=== PATIENT | female | born 2000 | race Caucasian/White ===

== ENCOUNTER 2018-01-22 07:48 | Emergency (ER) | payer BC ==
--- NOTE | 2018-01-22 09:08 | RAD ---
INDICATION: Left great toe pain. TECHNIQUE: 3 views of the left great toe were obtained. FINDINGS: There is soft tissue swelling adjacent to the distal phalanx. The bones are in normal alignment. No fracture is seen. Joint spaces appear maintained. IMPRESSION: SOFT TISSUE SWELLING.
--- NOTE | 2018-01-22 09:09 | RAD ---
INDICATION: Left knee pain. TECHNIQUE: 4 views of the left knee were obtained. FINDINGS: The bones are in normal alignment. No joint effusion or fracture is seen. Joint spaces appear maintained. IMPRESSION: NEGATIVE EXAM.
--- NOTE | 2018-01-22 09:25 | RAD ---
Indication: Left lower extremity edema. Duplex Doppler sonography of the deep venous system of the left lower extremity deep venous system was performed. Bilaterally the common femoral veins appear patent and compressible. Left proximal greater saphenous vein, proximal deep femoral vein, femoral vein, popliteal vein, posterior tibial veins and peroneal veins appear patent and compressible. IMPRESSION: NO EVIDENCE OF DEEP VENOUS THROMBOSIS IS IDENTIFIED.
[2018-01-22 11:13] VITALS: BP 113/82
--- NOTE | 2018-01-22 14:11 | ED ---
Rupert Mcallister Angela, scribed for Jose Luis Elliott MD on 01/22/18 at 0822 . Lower Extremity - HPI Summary HPI Summary: This pt is a 17 y/o female presenting to [facility] [place] [place]/o left knee pain x1 week. Pt denies any trauma or injury. Pt reports she bought a knee stabilizer and her pain was better 5 days ago. Pt denies doing any intense work up this past week. She went to the gym yesterday morning. Denies trauma or injury. Yesterday pt states her pain began again and also had left first toe pain. Pt describes her pain as sharp. She rates her pain 6 out of 10 in severity. She denies pain on bottom of her foot. No hx of blood clots. Pt has not taken any pain medication prior to arrival. Pt is currently on control pills. Pt is a student at [employer]. - History of Current Complaint Chief Complaint: EDExtremityLower Stated Complaint: LEFT FOOT AND KNEE PAIN Time Seen by Provider: 01/22/18 08:15 Hx Obtained From: Patient Mechanism Of Injury: Other - none Onset of Pain: Days Onset/Duration: Still Present Severity Currently: Moderate Pain Intensity: 6 Pain Scale Used: 0-10 Numeric Location: Is Discrete @ - left knee and left first toe Character Of Pain: Sharp Associated Signs And Symptoms: Positive: Knee Pain - left Aggravating Factor(s): Nothing Alleviating Factor(s): Nothing Able to Bear Weight: Yes PMH/Surg Hx/FS Hx/Imm Hx Endocrine/Hematology History: Denies: Hx Diabetes Cardiovascular History: Denies: Hx Hypertension Infectious Disease History: No Infectious Disease History: Denies: Traveled Outside the [place] in Last 30 Days - Family History Known Family History: Negative: Blood Disorder - FHx of blood clots - Social History Alcohol Use: None Substance Use Type: Reports: None Smoking Status (MU): Never Smoked Tobacco Review of Systems Constitutional: Negative Eyes: Negative ENT: Negative Cardiovascular: Negative Respiratory: Negative Gastrointestinal: Negative Genitourinary: Negative Positive: Arthralgia Skin: Negative Neurological: Negative Psychological: Normal All Other Systems Reviewed And Are Negative: Yes Physical Exam - Summary Physical Exam Summary: General: well-appearing, no pain distress Skin: warm, color reflects adequate perfusion, dry Head: normal Eyes: EOMI, JOSÉ MIGUEL ENT: normal Neck: supple, nontender Respiratory: CTA, breath sounds present Cardiovascular: RRR Abdomen: soft, nontender Bowel: present Musculoskeletal: strength/ROM intact. Tenderness with movement of left patellar. Tenderness in left popliteal. Neurological: normal, sensory/motor intact, A&O x3 Psychological: affect/mood appropriate Triage Information Reviewed: Yes Vital Signs On Initial Exam: Initial Vitals Temp Pulse Resp BP Pulse Ox 98.7 F 91 18 129/73 96 01/22/18 07:49 01/22/18 07:49 01/22/18 07:49 01/22/18 07:49 01/22/18 07:49 Vital Signs Reviewed: Yes Diagnostics - Vital Signs Vital Signs Temp Pulse Resp BP Pulse Ox 01/22/18 07:49 98.7 F 91 18 129/73 96 - Laboratory Lab Statement: Any lab studies that have been ordered have been reviewed, and results considered in the medical decision making process. - Radiology Left great toe XR Xray Interpretation: Positive (See Comments) - IMPRESSION: soft tissue swelling. Dr. Elliott has reviewed this radiology report. Radiology Interpretation Completed By: Radiologist Left knee XR Xray Interpretation: No Acute Changes - IMPRESSION: negative exam. Dr. Elliott has reviewed this radiology report. Radiology Interpretation Completed By: Radiologist - Ultrasound No standard instances Ultrasound Interpretation: No Acute Changes - Left lower extremity US IMPRESSION : No evidence of deep venous thrombosis is identified. Dr. Elliott has reviewed this radiology report. Ultrasound Interpretation Completed By: Radiologist Lower Extremity Course/Dx - Course Course Of Treatment: Medications reviewed. Allergies noted. Left great toe XR shows soft tissue swelling. Left knee XR is negative. LLE US is negative. DISCUSSED RESULTS WITH PATIENT. F/U [facility]/SPORTS MEDICINE. - Diagnoses Provider Diagnoses: Left knee pain, Pain of left great toe, Patellofemoral syndrome of left knee Discharge - Discharge Plan Condition: Stable Disposition: HOME Patient Education Materials: Patellofemoral Pain Syndrome (ED), Knee Pain (ED) Referrals: [facility] @ [Outside] Additional Instructions: FOLLOW UP WITH [facility]. IF YOU ARE NOT IMPROVING, THEY MAY REFER YOU TO SPORTS MEDICINE. RETURN TO THE EMERGENCY DEPARTMENT FOR ANY WORSENING OF YOUR CONDITION OR QUESTIONS OR CONCERNS. The documentation as recorded by the Rupert medina Angela accurately reflects the service I personally performed and the decisions made by me, Jose Luis Elliott MD.
== END 2018-01-22 11:13 | disposition home or self-care (01) ==
LOC: ED 07:48
DX: M25.562 Pain in left knee (principal); M79.675 Pain in left toe(s); M25.862 Other specified joint disorders, left knee
CPT/HCPCS: 99281

== ENCOUNTER 2019-11-14 04:11 | Emergency (ER) | payer BC ==
--- OUTSIDE RECORDS SUMMARY | 2019-11-14 04:22 | XMS REPORT | Summary of Care ---
:2000 Author Organization [facility] Address [address] [place] [address] Care Team Providers Name Role Phone None, [place] Primary Care Provider Unavailable Reason for Visit Reason Comments Neck Pain Encounter Details Date Type Department Care Team Description 11/11/2019 Office Visit [facility] Jose Luis Funez Cervical strain, initial encounter (Primary Dx); [address] [facility] Thoracic myofascial strain, initial encounter [address] [phone] [place] [address] [phone] Allergies Not on Filedocumented as of this encounter (statuses as of 11/11/2019) Medications Not on filedocumented as of this encounter (statuses as of 11/11/2019) Active Problems Not on filedocumented as of this encounter (statuses as of 11/11/2019) Social History Tobacco Use Types Packs/Day Years Used Date Never Smoker Smokeless Tobacco: Never Used Sex Assigned at Date Recorded Not on file Job Start Date Occupation Industry Not on file Not on file Not on file Travel History Travel Start Travel End No recent travel history available. documented as of this encounter Last Filed Vital Signs Not on filedocumented in this encounter Progress Notes Jose Luis Funez DC - 11/11/2019 4:15 PM EST PATIENT: Ericka Miller : 2000 DATE OF SERVICE: 11/11/2019 REFERRING PRACTITIONER: Self-Referred PRIMARY CARE PROVIDER: None, [place] Chief Complaint Patient presents with Neck Pain HISTORY OF PRESENT ILLNESS: Ericka Miller is a 19-y.o. female who presents for a new visit for cervical thoracic junction stiffness. Distribution is focal. Duration / onset: several weeks ago Mechanism of injury: none known History of trauma: There has been no recent cervical trauma Onset - other information: Finals. student Frequency: frequent Quality: tight band Severity: mild Timing: all day. Aggravating factors: twisting, rotation Alleviating factors: nothing, Associated signs and symptoms: valsalva maneuvers do not influence the low back pain No lower extremity radiation No lower extremity paresthesias No upper extremity radiation No upper extremity paresthesias No lower limb weakness. No upper limb weakness. Bowel and bladder control: bowel and bladder control are normal. Successful treatments to date: none Unsuccessful treatments to date: rest Consultations to date: none Imaging procedures: none Red flag screen: There has been no history of cancer, unexplained weight loss, night sweats or night pain. Outcomes questionnaires: Analog Pain Scale result: 01/11 NDI score: Oswestry score: History reviewed. No pertinent past medical history. History reviewed. No pertinent surgical history. History reviewed. No pertinent family history. No current outpatient medications on file. No current facility-administered medications for this visit. Allergies not on file Social History Socioeconomic History Marital status: Single Spouse name: Not on file Number of children: Not on file Years of education: Not on file Highest education level: Not on file Occupational History Not on file Social Needs Financial resource strain: Not on file Food insecurity Worry: Not on file Inability: Not on file Transportation needs Medical: Not on file Non-medical: Not on file Tobacco Use Smoking status: Never Smoker Smokeless tobacco: Never Used Substance and Sexual Activity Alcohol use: Not on file Drug use: Not on file Sexual activity: Not on file Lifestyle Physical activity Days per week: Not on file Minutes per session: Not on file Stress: Not on file Relationships Social connections Talks on phone: Not on file Gets together: Not on file Attends yarsani service: Not on file Active member of club or organization: Not on file Attends meetings of clubs or organizations: Not on file Relationship status: Not on file Intimate partner violence Fear of current or ex partner: Not on file Emotionally abused: Not on file Physically abused: Not on file Forced sexual activity: Not on file Other Topics Concern Not on file Social History Narrative Not on file REVIEW OF SYSTEMS: All remaining review of systems was negative. PHYSICAL EXAMINATION: There were no vitals filed for this visit. There is no height or weight on file to calculate BMI. Neurological Exam Reflexes: (All normal) The biceps, triceps, brachioradialis, Achilles and quadriceps reflexes were 2/5 and symmetrical, Neurological Exam Motor: (All lower limb normal) Motor strength at the extensor hallucis longus, tibialis anterior, peroneus longus, quadriceps and hamstring muscles was 5/5 and symmetrical, Regions of tenderness: Cervical thoracic junction Vascular Peripheral pulses at the wrist are present bilaterally and equal. Peripheral pulses at the ankle are present bilaterally and equal. Intersegmental Motion Evaluation / chiropractic subluxation Spinal joint dysfunction/ chiropractic subluxation Acute: Cervical: R-C6/7, L-C6/7, R-C7/T1, L-C7/T1 Thoracic: R-T1/2, L-T1/2, R-T2/3, L-T2/3 Posture Forward head carriage and rounded shoulder posture noted, and the shoulders are internally rotated. Orthopedics Tests Palpation of the musculature in the cervical spine and sub occipital region was positive for pain and reproduced the patient's complaints neck pain . Cervical compression testing was negative for upper extremity symptoms using compression with combined extension, lateral bending and rotation. Thoracic spine extension reproduced the patient's complaints of cervical thoracic junction stiffness. IMPRESSION: ICD-9-CM ICD-10-CM 1. Cervical strain, initial encounter 847.0 S16.1XXA 2. Thoracic myofascial strain, initial encounter 847.1 S29.019A Response to care: Initial vist Plan: History, Exam, Report of Findings, Manipulate areas of inter-segmental dysfunction as noted inthe section titled intersegmental motion evaluation above , instruct in exercisesfor the purpose of neuromuscular reeducation to improve strength and range of motion. . Neck Flexor Exercise: Do: AM/PM, work up to 10 each time. Remember to keep chin tucked, and roll head up as slow as possible, keep chin tucked and unroll neckas slow as possible. Wall Mal Do: AM/PM 15 times. Remember to keep elbows and hands on the wall at all times, bring elbows down and in towards your sides as far and as slow as possible, return to the start position. Manipulation: Spinal level(s): Spinal joint dysfunction/ chiropractic subluxation Acute: Cervical: R-C6/7, L-C6/7, R-C7/T1, L-C7/T1 Thoracic: R-T1/2, L-T1/2, R-T2/3, L-T2/3 Goal: Reduce pain Recommended Level of Care: Follow up: Schedule follow-up here as needed if symptoms worsen.. Patient cautioned against bed rest, and encouraged to remain active. No contraindications to manipulation were identified documented in this encounter Plan of Treatment Health Maintenance Due Date Last Done Comments CHLAMYDIA SCREENING 1998 DTaP/Tdap/Td Vaccines (1 - Tdap) 2009 HPV IMMUNIZATION SERIES (1 - Female 2009 2-dose series) DEPRESSION SCREENING 2010 HIV SCREENING 2013 PAP SMEAR 2019 INFLUENZA VACCINE (#1) 2019 HEPATITIS A IMMUNIZATION SERIES Aged Out No longer eligible based on patient's age to complete this topic MENINGOCOCCAL VACCINE IMM Aged Out No longer eligible based on patient's age to complete this topic PNEUMOCOCCAL 0-64 YRS Aged Out No longer eligible based on patient's age to complete this topic documented as of this encounter Results Not on filedocumented in this encounter Visit Diagnoses Diagnosis Cervical strain, initial encounter Thoracic myofascial strain, initial encounter documented in this encounter Insurance Payer Benefit Plan / Subscriber ID Effective Dates Phone Address Type Group [employer]ATIONAL [facility] NATIONAL xxxxxxxxxxxx 2008-Present Blue Cross/Blue Shield documented as of this encounter
[2019-11-14] MEDS ORDERED: Ondansetron INJ* 2 MG/ML VIAL IV ONE (04:44)
[2019-11-14] MEDS ORDERED: NS 0.9% 1000 ML** 2,000 ML IV ONE (04:44)
--- NOTE | 2019-11-14 04:45 | ED ---
GI/ HPI - HPI Summary HPI Summary: Patient is a 19 y/o F presenting to [facility] with complaints of abdominal pain and N/V/D. On 11/13/19 around 1400, patient became nauseous. She states that she went to work at 1600 and her nausea persisted. Patient returned home at 2100 and had onset of diarrhea and vomiting. She denies fever and chills. No blood in stool or vomit noted. Abdominal pain is rated 6-7/10. Pain has been intermittent since onset. Hx of PCOS is noted, she denies possibility of due to being on control. 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 Home medications and allergies are reviewed. - History of Current Complaint Stated Complaint: VOMMITING PER PT Hx Obtained From: Patient Onset/Duration: Started Hours Ago, Still Present Timing: Intermittent Severity: Moderate Current Severity: Moderate Pain Intensity: 6 Associated Signs and Symptoms: Positive: Nausea, Vomiting, Diarrhea, Other: - negative - chills. Negative: Hematemesis, Blood w/Stool, Fever - Allergy/Home Medications Allergies/Adverse Reactions: Allergies Allergy/AdvReac Type Severity Reaction Status Date / Time No Known Allergies Allergy Verified 11/14/19 04:17 PMH/Surg Hx/FS Hx/Imm Hx Endocrine/Hematology History: Denies: Hx Diabetes Cardiovascular History: Denies: Hx Hypertension History: Reports: Other Problems/Disorders - PCOS Infectious Disease History: No Infectious Disease History: Denies: Traveled Outside the [place] in Last 30 Days - Family History Known Family History: Negative: Blood Disorder - no FHx of blood clots - Social History Alcohol Use: None Substance Use Type: Reports: None Smoking Status (MU): Never Smoked Tobacco Review of Systems Negative: Fever, Chills Gastrointestinal: Other - negative - blood in vomit or diarrhea Positive: Abdominal Pain, Vomiting, Diarrhea, Nausea All Other Systems Reviewed And Are Negative: Yes Physical Exam - Summary Physical Exam Summary: Appearance: Well-appearing, Well-nourished, lying in bed comfortably Skin: Warm, dry, no obvious rash Eyes: sclera anicteric, no conjunctival pallor ENT: mucous membranes moist, pharynx appears normal Neck: Supple, nontender Respiratory: Clear to auscultation, no signs of respiratory distress Cardiovascular: vital signs are notable for mild tachycardia; Normal S1, S2. No murmurs. Normal distal pulses in tibial and radial bilaterally. Abdomen: Soft, nontender, normal active bowel sounds present Musculoskeletal: Normal, Strength/ROM Intact Neurological: A&Ox3, awake and alert, mentation is normal, speech is fluent and appropriate Psychiatric: affect is normal, does not appear anxious or depressed Triage Information Reviewed: Yes Vital Signs On Initial Exam: Initial Vitals Temp Pulse Resp BP Pulse Ox 97.8 F 124 16 114/80 98 11/14/19 04:15 11/14/19 04:15 11/14/19 04:15 11/14/19 04:15 11/14/19 04:15 Vital Signs Reviewed: Yes Procedures - Sedation Patient Received Moderate/Deep Sedation with Procedure: No Diagnostics - Vital Signs Vital Signs Temp Pulse Resp BP Pulse Ox 11/14/19 04:15 97.8 F 124 16 114/80 98 - Laboratory Result Diagrams: 11/14/19 04:52 11/14/19 04:52 Lab Statement: Any lab studies that have been ordered have been reviewed, and results considered in the medical decision making process. GIGU Course/Dx - Course Course Of Treatment: Patient is a 19 y/o F presenting to [facility] with complaints of abdominal pain and N/V/D. On 11/13/19 around 1400, patient became nauseous. She states that she went to work at 1600 and her nausea persisted. Patient returned home at 2100 and had onset of diarrhea and vomiting. She denies fever and chills. No blood in stool or vomit noted. Abdominal pain is rated 6-7/10. Pain has been intermittent since onset. Hx of PCOS is noted, she denies possibility of due to being on control. 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 Bloodwork was obtained and within normal limits with exception of RBC 5.48, absolute lymphs 0.2, glucose 151. During ED course, patient received 8 mg IV Zofran and fluids. Patient tolerated PO challenge and is comfortable with discharge to home. She was prescribed zofran and will follow up with PCP in three days. - Diagnoses Provider Diagnoses: Gastroenteritis Discharge ED - Sign-Out/Discharge Documenting (check all that apply): Patient Departure - discharge - Discharge Plan Condition: Good Disposition: HOME Prescriptions: Ondansetron ODT TAB* [Zofran 4 MG Odt TAB*] 8 mg PO Q6H PRN #[id number] tab.odt PRN Reason: Nausea Patient Education Materials: Clear Liquid Diet (ED), Gastroenteritis (ED) Referrals: [facility] [Z.BUSINESS, APPLICATION, OTHER] - 3 Days (if not improved) Additional Instructions: Stick to clear liquids through the day today. If you are feeling better tomorrow you can advance your diet, but start with simple foods first (don't jump straight to a naik cheeseburger!). - Billing Disposition and Condition Condition: GOOD Disposition: Home - Attestation Statements Document Initiated by [employer]: Yes Documenting Scribe: EMELIA GARCIA Provider For Whom Sandy is Documenting (Include Credential): YULIET GAR MD Scribe Attestation: EMELIA Mcallister, scribed for YULIET GAR MD on 11/14/19 at 1914. Scribe Documentation Reviewed: Yes Provider Attestation: The documentation as recorded by the EMELIA medina accurately reflects the service I personally performed and the decisions made by me, YULIET GAR MD Status of Scribe Document: Viewed
[2019-11-14 04:59] LABS: ABS Lymphocytes 0.2 10^3/ul (1.0-4.8); ABS Monocytes 0.3 10^3/ul (0-0.8); ABS Neutrophils 7.6 10^3/ul (1.5-7.7); Hematocrit 46 % (35-47); Hemoglobin 15.7 g/dL (12.0-16.0); Mean Corpuscular HGB Conc 35 g/dL (31-36); Mean Corpuscular Hemoglobin 29 pg (27-31); Mean Corpuscular Volume 83 fL (80-97); Mean Platelet Volume 7.7 fL (7.4-10.4); Nucleated Red Blood Cells % 0.2; Platelet Count 233 10^3/uL (150-450); Red Blood Count 5.48 10^6 /uL (3.70-4.87); Red Cell Distribution Width 12 % (10-15); White Blood Count 8.1 10^3/uL (3.5-10.8)
[2019-11-14 05:17] LABS: ALT 17 U/L (7-52); AST 16 U/L (13-39); Albumin 4.1 g/dL (3.2-5.2); Albumin/Globulin Ratio 1.6 (1-3); Alkaline Phosphatase 38 U/L (34-104); Anion Gap 8 mmol/L (2-11); BUN/Creatinine Ratio 17.9 (8-20); Blood Urea Nitrogen 15 mg/dL (6-24); CO2 Carbon Dioxide 24 mmol/L (22-32); Chloride 108 mmol/L (101-111); EGFR African American 103.6 (>60); EGFR Non-African American 85.6 (>60); Globulin 2.5 g/dL (2-4); Glucose 151 mg/dL (70-100); Potassium 3.9 mmol/L (3.5-5.0); Sodium 140 mmol/L (135-145); Total Protein 6.6 g/dL (6.4-8.9)
[2019-11-14 05:24] LABS: HCG Pregnancy < 0.60 mIU/mL
[2019-11-14 07:07] VITALS: BP 113/72
== END 2019-11-14 07:09 | disposition home or self-care (01) ==
LOC: ED 04:11
DX: K52.9 Noninfective gastroenteritis and colitis, unspecified (principal)
CPT/HCPCS: 36415; 80053; 84702; 85025; 96361; 96374; 99282; J2405